=== PATIENT | female | born 1955 | race Caucasian/White ===

== ENCOUNTER 2023-06-13 08:32 | Outpatient (AMB) | payer OTHER, SELFPAY ==
--- NOTE | 2023-06-13 09:12 | A.SPINEOV_ITS ---
Intake Intake Visit Reasons: Lt leg parasthesia Intake Note: Ms. Ching is here today c/o left leg parasthesia. Brought MRI disc. Disease Education Specialist Required: No Assessment & Plan Assessment & Plan (1) Numbness and tingling of both legs: Code(s): R20.0 - Anesthesia of skin; R20.2 - Paresthesia of skin Plan Dear Dr Lang, Mrs Ching referred herself to our office today for evaluation of a series of neurological symptoms that have been going on now for about 3 or 4 weeks. She tells me that on the morning of May 25 she awoke and had numbness on the outer part of her calf going into the outer part of her foot (S1 dermatome). She went to the emergency room, was worked up with a lumbar MRI which showed some mild degenerative changes in she was discharged next day. Stroke was ruled out. The day after her discharge it started on her right calf in her right outer foot. Similar distribution to the left. She went back to the emergency room, series of MRIs done of the cervical and thoracic as well as brain were done showing no significant findings. The patient was discharged to neurology follow-up. Neuro surgery said there was no signs of compression so nothing to do on there and. Over the course the next week the patient developed some bowel and bladder issues. She does not have any incontinence but does feel as though she has difficulty getting a good urine stream it does not come out as strong as normal. She also reports that she has limited sensation when she is having a bowel movement. To be clear, there is no sensory loss, meaning that when she is wiping herself or when she is not having a bowel movement things feel normal. She saw neurologist to put her on steroids (prednisone), she could not tolerate this so there were de-escalated to with the lower dose budesonide. Over the last week or so the numbness on the left foot and leg seems to be year old going away. The right side is the same as it was and the urine stream and bowel sensation issue are at status quo. She does feel like her balance is off because of the numbness of her foot. She had been working with a physical therapist who recommended she come see us. Apparently there was an EMG in the works. There is also an LP possibly as well. PMH: Hypertension, hypothyroidism, ulcerative proctitis, left knee replacement, high cholesterol Social hx: She does not smoke Medications: Lisinopril, levothyroxine, baby aspirin, Lipitor, budesonide taper, omeprazole, mesalamine suppository, celecoxib she takes a number of different vitamins Allergies: Penicillin codeine Physical exam: She has decreased sensation to light touch in an S1 dermatome on her right leg, left leg is normal. Upper extremities normal. Strength is normal, reflexes 3+ and symmetric. No pathological reflexes seen. Imaging review: She has imaging done at [place] year of her cervical thoracic and lumbar. There is no evidence of spinal cord compression anywhere throughout the neuro axis. There is no evidence of compression in the central canal the lumbar spine. There is some mild foraminal narrowing at the L5-S1 level, specifically on the L5 nerves but it is not severe. There is no T2 cord signal change or signs of myelitis. Impression: 68-year-old female presents to the office today for evaluation of spontaneous onset of numbness on her left leg which then transition to her right leg in an S1 dermatome as well as some altered sensation when she is having a bowel movement but no ritika incontinence or saddle anesthesia. She came to see us because of the MRI reports suggesting there was some disc degeneration and compression of the L5 nerve. None of her symptoms are compatible with degenerative changes of the lumbar spine, and the distribution of the myotome and dermatomal presentation is not consistent with the L5 nerve root but rather the sacral nerve roots. There is no compression of any of the sacral nerves nor anything in the spinal cord that would explain the symptoms as a structural abnormality. 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 I suspect that the rest of the sensory changes will also go away with time. It is important she follows up with the neurologist to get the EMG and possibly an LP to see if they can establish the cause or an underlying diagnosis. Thank you for allowing us to care for your patient. The total time spent with this visit with this patient was 60 minutes reviewing history, physical exam, lumbar, cervical, thoracic imaging review, and implementation of treatment plan or further diagnostic testing Brodie Ricci MD,PhD [facility] Coding Level of Care Code New Pt Level 5 (71070) Diagnoses Numbness and tingling of both legs R20.0; R20.2
== END 2023-06-13 09:54 | disposition home or self-care (01) ==
PROVIDERS: PCP Student in an Organized Health Care Education/Training Program; Visit Provider Physician Assistant
DX: R20.0 Anesthesia of skin (principal); R20.2 Paresthesia of skin
CPT/HCPCS: 99205

== ENCOUNTER → 2023-06-13 08:32 | Outpatient (BNVA) | payer OTHER, SELFPAY | PROVIDERS: PCP Student in an Organized Health Care Education/Training Program; Visit Provider Physician Assistant ==